=== PATIENT | female | born 1975 | race Two or more races ===

== ENCOUNTER 2017-02-10 15:00 | Emergency (ER) | payer SELFPAY ==
[~2017-02-10] VITALS: Ht 165.1 cm; Wt 74.4 kg
[2017-02-10 15:13] VITALS: BP 128/65
[2017-02-10] MEDS ORDERED: NAPROXEN 500 MG TABLET PO STA (15:33)
[2017-02-10] MEDS ORDERED: DICL50TA4 PO (15:41)
[2017-02-10] MEDS ORDERED: CYCL10TA2 PO (15:41)
[2017-02-10] MEDS ORDERED: METH4TAB2 PO (15:41)
--- NOTE | 2017-02-10 15:41 | PHYS DOC ---
Past Medical History Past Medical History: No Pertinent History Past Surgical History: No Surgical History Alcohol Use: None Drug Use: None Adult General Chief Complaint Chief Complaint: BACK PAIN OR INJURY HPI HPI Patient is a 41 year old female with no significant medical history who presents with mild bilateral low back pain radiating to the left lower extremity that began 4 days ago. Patient denies any known trauma. Patient states the pain is worse on position changes. Denies any loss of bowel bladder function. Review of Systems Review of Systems Constitutional: Denies fever or chills [] GI: Denies abdominal pain, nausea, vomiting, bloody stools or diarrhea [] : Denies dysuria or hematuria [] Musculoskeletal: Bilateral low back pain radiating to the left lower extremity Integument: Denies rash or skin lesions [] Neurologic: Denies headache, focal weakness or sensory changes [] Physical Exam Physical Exam Constitutional: Well developed, well nourished, no acute distress, non-toxic appearance. [] Abdomen: Bowel sounds normal, soft, no tenderness, no masses, no pulsatile masses. [] Skin: Warm, dry, no erythema, no rash. [] Back: Diffuse paraspinal muscle tenderness to bilateral lumbar spine was on the left SI joint, no midline lumbar spine tenderness, no CVA tenderness. Positive left leg straight raises. Extremities: No tenderness, no cyanosis, no clubbing, ROM intact, no edema. [] Neurologic: Alert and oriented X 3, normal motor function, normal sensory function, no focal deficits noted. [] Psychologic: Affect normal, judgement normal, mood normal. [] Current Patient Data Vital Signs Vital Signs Date Time Temp Pulse Resp B/P (MAP) Pulse Ox O2 Delivery O2 Flow Rate FiO2 02/10/17 15:13 98.7 79 18 99 Room Air 98.7 EKG EKG [] Radiology/Procedures Radiology/Procedures [] Course & Med Decision Making Course & Med Decision Making Pertinent Labs and Imaging studies reviewed. (See chart for details) Patient is in the ED with bilateral low back pain radiating to the left lower extremity. No known injury, no cauda equina syndrome symptoms. Patient will be discharged with diclofenac, cyclobenzaprine, Medrol Dosepak. Follow-up with PCP from the list provided in one week. Dragon Disclaimer Dragon Disclaimer This electronic medical record was generated, in whole or in part, using a voice recognition dictation system. Departure Departure Impression: Primary Impression: Low back pain Additional Impression: Sciatica, left side Disposition: 01 HOME, SELF-CARE Condition: STABLE Patient Instructions: Back Pain, Adult, [id number], Sciatica, [id number] Additional Instructions: You were seen for low back pain with sciatica. Take the prescribed medicines as ordered. Do not drive or operate machinery on the cyclobenzaprine. Follow-up with her doctor from the list provided in the next 7 days. Continue using heating pad to the back Scripts Cyclobenzaprine Hcl (CYCLOBENZAPRINE HCL) 10 Mg Tablet 1 TAB PO TID, #30 TAB Prov: TORSTEN NAZARIO APRN 02/10/17 Methylprednisolone (MEDROL) 4 Mg Tab.ds.pk 1 PKG PO UD, #1 PKG Prov: TORSTEN NAZARIO APRN 02/10/17 Diclofenac Sodium (DICLOFENAC SODIUM) 50 Mg Tablet.dr 1 TAB PO BID, #60 TAB 2 Refills Prov: TORSTEN NAZARIO APRN 02/10/17 Problem Qualifiers Primary Impression: Low back pain Chronicity: acute Back pain laterality: left Sciatica presence: with sciatica Sciatica laterality: sciatica of left side Qualified Codes: M54.42 - Lumbago with sciatica, left side TORSTEN NAZARIO APRN Feb 10, 2017 15:41
[2017-02-10] MEDS ORDERED: HYDROcodone/APAP 5/325MG 1 TAB TABLET PO ONE (15:45)
[2017-02-10] MEDS ORDERED: CYCLOBENZAPRINE 10 MG TABLET. PO ONE (15:45)
== END 2017-02-10 16:05 | disposition home or self-care (01) ==
LOC: ER 15:00
DX: M54.42 Lumbago with sciatica, left side (principal)
CPT/HCPCS: 99284